=== PATIENT | male | born 1955 | race Caucasian/White ===

== ENCOUNTER 2019-04-14 10:31 | Emergency (ER) | payer BC ==
[~2019-04-14] VITALS: Ht 177.8 cm; Wt 91.9 kg
[2019-04-14] MEDS ORDERED: SODIUM CHLORIDE FLUSH 10ML SYR IVF ONE (11:00)
[2019-04-14] MEDS ORDERED: ONDANSETRON 2MG/ML, 2ML IVPush ONE (11:00)
[2019-04-14] MEDS ORDERED: MORPHINE SULFATE 4 MG/ML, 1ML ONE ×2 (11:03→12:50)
[2019-04-14] MEDS ORDERED: ONDANSETRON 2MG/ML, 2ML ONE (11:03)
[2019-04-14] MEDS: MORPHINE SULFATE 4 MG/ML, 1ML IVPush PRN ×2 (11:15→12:54)
--- NOTE | 2019-04-14 11:25 | NUR ---
IV ESTABLISHED AND PT MEDICATED PER MAY, URINE SAMPLE SENT TO LAB. PT RESTING IN [facility]
[2019-04-14 11:31] LABS: MICROSCOPIC AUTO
[2019-04-14 11:31] LABS: BASOPHILS # (AUTO) 0.05 x10^3/uL (0-0.1); BASOPHILS % (AUTO) 0 % (0-1); EOSINOPHILS # (AUTO) 0.04 x10^3/uL (0-0.4); EOSINOPHILS % (AUTO) 0 % (1-7); LYMPHOCYTES % (AUTO) 6 % (22-44); MD NO; MEAN CORPUSCULAR HGB CONC 33.7 g/dL (33.2-36.2); MEAN CORPUSCULAR VOLUME 94.9 fL (81-97); MONOCYTES # (AUTO) 0.62 x10^3/uL (0.2-0.8); MONOCYTES % (AUTO) 5 % (2-9); NEUTROPHILS # (AUTO) 11.27 x10^3/uL (1.8-6.8); NEUTROPHILS % (AUTO) 88 % (42-75); PLATELET COUNT 317 x10^3/uL (130-400); RED BLOOD COUNT 4.77 x10^6/uL (4.38-5.82); RED CELL DISTRIBUTION WIDTH 13.3 % (9.4-14.8)
[2019-04-14 11:37] LABS: CULTURE INDICATED? NO
[2019-04-14 11:42] LABS: ALBUMIN 3.6 g/dL (3.4-5.0); ANION GAP 8 mmol/L (5-15); CALCIUM 8.5 mg/dL (8.5-10.1); CHLORIDE 103 mmol/L (98-107); CREATININE 1.04 mg/dL (0.7-1.3)
[2019-04-14] MEDS ORDERED: KETOROLAC 30 MG/1 ML ONE (12:45)
--- NOTE | 2019-04-14 12:55 | NUR ---
pt requesting second dose of morphine, pain not relieved after morphine. pt instructed he will need to stay to be monitored for 30 min after dose of morphine. pt agrees
[2019-04-14] MEDS ORDERED: KETOROLAC 30 MG/1 ML IVPush ONE (13:00)
[2019-04-14 13:39] VITALS: BP 121/68
--- NOTE | 2019-04-14 13:40 | NUR ---
PT DISCHARGED WITH SPOUSE, EDUCATED TO NOT BE LEFT ALONE OR FALL ASLEEP ALONE AFTER NARCOTIC DOSES
== END 2019-04-14 13:42 | disposition home or self-care (01) ==
LOC: ED 10:40
DX: N13.2 Hydronephrosis with renal and ureteral calculous obstruction (principal); I10 Essential (primary) hypertension
CPT/HCPCS: 36415; 74176; 80048; 81001; 82040; 85025; 96374; 96375; 96376; 99284; J1885; J2270; J2405

== ENCOUNTER 2020-08-18 08:37 | Inpatient (IN) | payer BC, MEDICARE ==
[~2020-08-18] VITALS: Ht 177.8 cm; Wt 95.2 kg
[2020-08-18 09:53] LABS: BASOPHILS % (AUTO) 1 % (0-1); EOSINOPHILS % (AUTO) 4 % (1-7); LYMPHOCYTES % (AUTO) 22 % (22-44); MEAN CORPUSCULAR HEMOGLOBIN 31.8 pg (27.5-34.5); MEAN CORPUSCULAR HGB CONC 34.1 g/dL (33.2-36.2); MEAN PLATELET VOLUME 8.3 fL (7.4-10.4); MONOCYTES % (AUTO) 13 % (2-9); NEUTROPHILS % (AUTO) 61 % (42-75); PLATELET COUNT 229 x10^3/uL (130-400); RED BLOOD COUNT 5.06 x10^6/uL (4.38-5.82); RED CELL DISTRIBUTION WIDTH 13.7 % (9.4-14.8)
[2020-08-18 09:55] LABS: ANION GAP 4 mmol/L (5-15); CHLORIDE 104 mmol/L (98-107)
--- NOTE | 2020-08-18 09:55 | NUR ---
THIS IS A 64 YEAR OLD MALE WHO C/O HAVING PAIN DOWN BILAT ARMS, AND INDIGESTION WITH TIGHTNESS IN STERNAL CHEST, STARTED YESTERDAY AROUND 0800. SOB STARTED 2 DAYS AGO. HX HTN, PT PLACED ON CARDICA MONITOR, SINUS, CONTINOUS SP02 AND CYCLE VS
[2020-08-18 10:00] LABS: ALANINE AMINOTRANSFERASE 31 U/L (12-78); ALKALINE PHOSPHATASE 53 U/L (45-117); BILIRUBIN,TOTAL 0.7 mg/dL (0.2-1.0); TROPONIN I 0.023 ng/mL (0.000-0.045)
[2020-08-18 10:04] LABS: MD NO
--- NOTE | 2020-08-18 10:55 | NUR ---
PT UP TO RESTROOM GAIT SLOW AND STEADY, VISITING WITH SON.
[2020-08-18] MEDS ORDERED: LISI-167 PO (10:56)
[2020-08-18] MEDS ORDERED: NITROGLYCERIN OINT 2%, 1GM TP ONE ×2 (11:48→12:00)
[2020-08-18] MEDS ORDERED: ASPIRIN 81 MG TABLET CHEW ONE (11:49)
[2020-08-18] MEDS ORDERED: ASPIRIN 81 MG TABLET CHEW PO ONE (12:00)
--- NOTE | 2020-08-18 13:19 | NUR ---
REPORT TO KENDY NAZARIO, PLAN OF CARE GIVING
[2020-08-18 14:59] VITALS: BP 115/65
[2020-08-18] MEDS ORDERED: ATOR10TA9 PO (15:22)
[2020-08-18] MEDS ORDERED: MELO15TA24 PO (15:22)
[2020-08-18] MEDS ORDERED: NITROGLYCERIN 0.4 MG BOTTLE (25 TABS) SL PRN (15:30)
[2020-08-18] MEDS ORDERED: ACETAMINOPHEN 325 MG TABLET PO PRN (15:30)
[2020-08-18] MEDS ORDERED: morphine SULFATE 10 MG/ML, 1ML IVPush PRN (15:30)
[2020-08-18] MEDS ORDERED: NITROGLYCERIN 0.4 MG/SPRAY SL PRN (15:30)
[2020-08-18] MEDS ORDERED: DOCUSATE 100 MG CAPSULE PO PRN (15:30)
[2020-08-18] MEDS ORDERED: POLYETHYLENE GLYCOL 17 GM PACKET PO PRN (15:30)
[2020-08-18 16:16] LABS: TROPONIN I 0.069 ng/mL (0.000-0.045)
[2020-08-18] MEDS: ENOXAPARIN 40 MG/0.4 ML SQ SCH (18:17)
[2020-08-18 18:19] VITALS: BP 129/74
[2020-08-18] MEDS ORDERED: ATORVASTATIN 10 MG TABLET PO SCH (21:00)
[2020-08-18 21:42] LABS: TROPONIN I 0.096 ng/mL (0.000-0.045)
[2020-08-19 00:58] VITALS: BP 151/79
[2020-08-19 05:21] LABS: BASOPHILS % (AUTO) 1 % (0-1); EOSINOPHILS % (AUTO) 4 % (1-7); LYMPHOCYTES % (AUTO) 21 % (22-44); MEAN CORPUSCULAR HEMOGLOBIN 32.2 pg (27.5-34.5); MEAN CORPUSCULAR HGB CONC 34.6 g/dL (33.2-36.2); MEAN PLATELET VOLUME 8.1 fL (7.4-10.4); MONOCYTES % (AUTO) 10 % (2-9); NEUTROPHILS % (AUTO) 64 % (42-75); PLATELET COUNT 220 x10^3/uL (130-400); RED BLOOD COUNT 5.11 x10^6/uL (4.38-5.82); RED CELL DISTRIBUTION WIDTH 13.7 % (9.4-14.8)
[2020-08-19 05:22] LABS: MD NO
[2020-08-19 05:32] LABS: ALBUMIN 3.8 g/dL (3.4-5.0); CHLORIDE 107 mmol/L (98-107)
[2020-08-19 05:51] LABS: ALANINE AMINOTRANSFERASE 29 U/L (12-78); ALKALINE PHOSPHATASE 52 U/L (45-117); ANION GAP 7 mmol/L (5-15); BILIRUBIN,TOTAL 0.7 mg/dL (0.2-1.0); CALCIUM 8.6 mg/dL (8.5-10.1); CHOL/HDL RATIO 3.7; CHOLESTEROL, TOTAL 167 mg/dL (140-239); CREATININE 0.87 mg/dL (0.7-1.3); HDL CHOL % 27 % (26-37); HDL CHOLESTEROL (DIRECT) 45 mg/dL (40-60); LDL CHOLESTEROL,CALCULATED 105 mg/dL (54-169); LDL/HDL RATIO 2.3 (0.5-3.0); TOTAL PROTEIN 7.1 g/dL (6.4-8.2); TRIGLYCERIDES 86 mg/dL (50-200); VLDL CHOLESTEROL 17 mg/dL (0-25)
[2020-08-19] MEDS ORDERED: SODIUM CHLORIDE 0.9% 1,000 ML IV SCH (06:00)
[2020-08-19 07:01] VITALS: BP 142/80
[2020-08-19] MEDS: LISINOPRIL 10 MG TABLET PO SCH (08:31)
[2020-08-19] MEDS ORDERED: REGADENOSON 0.4 MG/5 ML SYRINGE ONE (09:12)
[2020-08-19 14:23] VITALS: BP 137/74
[2020-08-19] MEDS: ASPIRIN 81 MG TABLET EC PO SCH (15:30)
[2020-08-19] MEDS: ENOXAPARIN 40 MG/0.4 ML SQ SCH (18:30)
[2020-08-19 18:35] VITALS: BP 159/87
[2020-08-19] MEDS: ATORVASTATIN 80 MG TABLET PO SCH (21:01)
[2020-08-20 01:23] VITALS: BP 143/80
[2020-08-20] MEDS: SODIUM CHLORIDE 0.9% 1,000 ML IV SCH ×2 (05:50→16:00)
[2020-08-20] MEDS: LISINOPRIL 10 MG TABLET PO SCH (09:52)
[2020-08-20] MEDS: ASPIRIN 81 MG TABLET EC PO SCH (09:52)
[2020-08-20 10:09] VITALS: BP 156/83
[2020-08-20 12:32] VITALS: BP 148/84
[2020-08-20] MEDS ORDERED: LIDOCAINE-MPF 1%, 5ML ONE (14:20)
[2020-08-20] MEDS ORDERED: MIDAZOLAM 1 MG/ML, 2ML ONE (14:20)
[2020-08-20] MEDS ORDERED: FENTANYL PF 100 MCG/2ML ONE (14:20)
[2020-08-20] MEDS ORDERED: VERAPAMIL 2.5 MG/ML, 2ML ONE (14:20)
[2020-08-20] MEDS ORDERED: HEPARIN 1,000 UNITS/ML, 10ML ONE (14:21)
[2020-08-20] MEDS ORDERED: HEPARIN 5,000 UNITS/ML, 1ML IV PRN (15:30)
[2020-08-20] MEDS ORDERED: HEPARIN 5,000 UNITS/ML, 1ML IV ONE (15:30)
[2020-08-20] MEDS ORDERED: HEPARIN 25,000 UNITS/250ML PMX 250 ML IV PRN (15:30)
[2020-08-20 19:50] VITALS: BP 118/81
[2020-08-20] MEDS: ATORVASTATIN 80 MG TABLET PO SCH (21:58)
[2020-08-21 00:41] VITALS: BP 145/87
[2020-08-21 06:46] LABS: BASOPHILS % (AUTO) 1 % (0-1); EOSINOPHILS % (AUTO) 4 % (1-7); LYMPHOCYTES % (AUTO) 19 % (22-44); MEAN CORPUSCULAR HEMOGLOBIN 31.7 pg (27.5-34.5); MEAN PLATELET VOLUME 7.9 fL (7.4-10.4); MONOCYTES % (AUTO) 10 % (2-9); NEUTROPHILS % (AUTO) 66 % (42-75); PLATELET COUNT 212 x10^3/uL (130-400); RED BLOOD COUNT 5.33 x10^6/uL (4.38-5.82); RED CELL DISTRIBUTION WIDTH 13.8 % (9.4-14.8)
[2020-08-21 06:49] LABS: MD NO
[2020-08-21 06:54] LABS: ANION GAP 5 mmol/L (5-15); CALCIUM 8.8 mg/dL (8.5-10.1); CHLORIDE 104 mmol/L (98-107); CREATININE 1.02 mg/dL (0.7-1.3)
[2020-08-21 08:28] VITALS: BP 145/83
[2020-08-21] MEDS ORDERED: LABETALOL 5MG/ML, 20ML IVPush PRN (09:00)
[2020-08-21] MEDS: ASPIRIN 81 MG TABLET EC PO SCH (10:00)
[2020-08-21] MEDS: CARVEDILOL 6.25 MG TABLET PO SCH ×2 (10:00→17:08)
[2020-08-21] MEDS ORDERED: PHARMACY INSTRUCTION MC ONE (10:00)
[2020-08-21 10:10] LABS: BASOPHILS % (AUTO) 1 % (0-1); EOSINOPHILS % (AUTO) 3 % (1-7); LYMPHOCYTES % (AUTO) 16 % (22-44); MEAN CORPUSCULAR HGB CONC 34.3 g/dL (33.2-36.2); MEAN PLATELET VOLUME 7.9 fL (7.4-10.4); MONOCYTES % (AUTO) 10 % (2-9); NEUTROPHILS % (AUTO) 70 % (42-75); PLATELET COUNT 204 x10^3/uL (130-400); RED BLOOD COUNT 5.36 x10^6/uL (4.38-5.82); RED CELL DISTRIBUTION WIDTH 13.6 % (9.4-14.8)
[2020-08-21 10:15] LABS: MD NO
[2020-08-21 10:17] LABS: INTERNATIONAL NORMALIZED RATIO 1.02 (0.93-1.1); PROTHROMBIN TIME 10.9 Seconds (9.6-11.5)
[2020-08-21 10:22] LABS: ALBUMIN 3.7 g/dL (3.4-5.0); ANION GAP 7 mmol/L (5-15); CALCIUM 8.8 mg/dL (8.5-10.1); CHLORIDE 106 mmol/L (98-107)
[2020-08-21 10:25] LABS: ALANINE AMINOTRANSFERASE 27 U/L (12-78); ALKALINE PHOSPHATASE 58 U/L (45-117); CREATININE 0.91 mg/dL (0.7-1.3); TOTAL PROTEIN 7.1 g/dL (6.4-8.2)
[2020-08-21] MEDS ORDERED: HEPARIN 5,000 UNITS/ML, 1ML IV PRN (11:30)
[2020-08-21] MEDS ORDERED: HEPARIN 25,000 UNITS/250ML PMX 250 ML IV PRN (11:30)
[2020-08-21 13:05] VITALS: BP 126/76
[2020-08-21] MEDS ORDERED: MAGNESIUM SULFATE PMX 2GM/50ML 50 ML ONE (16:55)
[2020-08-21] MEDS ORDERED: MAGNESIUM SULFATE PMX 2GM/50ML 50 ML IV ONE (17:00)
[2020-08-21] MEDS: MUPIROCIN OINT 2%, 15GM TP SCH (17:12)
[2020-08-21 19:43] VITALS: BP 127/74
[2020-08-21] MEDS: SODIUM CHLORIDE FLUSH 10ML SYR IVF SCH (21:00)
[2020-08-21] MEDS: ATORVASTATIN 80 MG TABLET PO SCH (21:55)
[2020-08-21] MEDS ORDERED: CHLORHEXIDINE 15 ML UDC MM ONE (22:00)
[2020-08-21 22:42] LABS: MICROSCOPIC NOT IND
[2020-08-22 02:00] VITALS: BP 132/77
[2020-08-22 04:16] VITALS: BP 137/78
[2020-08-22] MEDS ORDERED: METOPROLOL TARTRATE 25 MG TAB PO ONE (05:00)
[2020-08-22] MEDS ORDERED: INSULIN LISPRO 100 UNITS/ML, PEN SQ-INSULIN ONE (05:00)
[2020-08-22] MEDS: MUPIROCIN OINT 2%, 15GM TP SCH (06:00)
[2020-08-22] MEDS: CARVEDILOL 6.25 MG TABLET PO SCH (06:16)
[2020-08-22] MEDS ORDERED: PAPAVERINE 30 MG/ML, 2ML ONE ×2 (06:30→06:41)
[2020-08-22] MEDS ORDERED: HEPARIN 1,000 UNITS/ML, 10ML ONE ×2 (06:30→06:41)
[2020-08-22] MEDS ORDERED: MIDAZOLAM 10MG/2 ML ONE (06:49)
[2020-08-22] MEDS ORDERED: FENTANYL PF 250 MCG/5ML ONE ×5 (06:49→09:10)
[2020-08-22] MEDS ORDERED: AMINOCAPROIC ACID 250 MG/ML, 20ML ONE ×2 (06:50)
[2020-08-22] MEDS ORDERED: ROCURONIUM 10MG/ML,5ML ONE ×3 (06:50→08:00)
[2020-08-22] MEDS ORDERED: EPINEPHRINE 1 MG/ML, 1ML ONE (06:51)
[2020-08-22] MEDS ORDERED: PHENYLEPHRINE 10 MG/ML ONE (06:51)
[2020-08-22] MEDS ORDERED: DEXMEDETOMIDINE 200 MCG in SODIUM CHLORIDE 0.9% 48 ML IV PRN (07:30)
[2020-08-22] MEDS ORDERED: MANNITOL PMX 20% 500 ML IVPB PRN (07:30)
[2020-08-22] MEDS ORDERED: VANCOMYCIN 0 MG in SODIUM CHLORIDE 0.9% 250 ML IVPB ONE (07:30)
[2020-08-22] MEDS ORDERED: VANCOMYCIN 1,400 MG in SODIUM CHLORIDE 0.9% 250 ML IV ONE (07:30)
[2020-08-22] MEDS ORDERED: REGULAR INSULIN 100 UNITS in SODIUM CHLORIDE 0.9% 99 ML IV PRN ×2 (07:30→12:00)
[2020-08-22] MEDS ORDERED: PHENYLEPHRINE 50 MG in SODIUM CHLORIDE 0.9% 245 ML IV PRN (07:30)
[2020-08-22] MEDS ORDERED: ALBUMIN HUMAN 5% 500 ML IV PRN ×2 (07:30→12:00)
[2020-08-22] MEDS ORDERED: POTASSIUM CHLORIDE 80 MEQ, SODIUM BICARBONATE 8.4% 10 MEQ, MAGNESIUM SULFATE 0.5 GM, LI... IV PRN (07:30)
[2020-08-22] MEDS ORDERED: CEFUROXIME 1.5 GM in SODIUM CHLORIDE 0.9% 50 ML IVPB ONE (07:30)
[2020-08-22] MEDS ORDERED: EPINEPHRINE 5 MG in SODIUM CHLORIDE 0.9% 245 ML IV PRN ×2 (07:30→12:00)
[2020-08-22] MEDS ORDERED: PROPOFOL 10 MG/ML, 20ML ONE (08:37)
[2020-08-22] MEDS: ASPIRIN 81 MG TABLET EC PO SCH (09:00)
[2020-08-22] MEDS: SODIUM CHLORIDE FLUSH 10ML SYR IVF SCH ×3 (09:00→20:44)
[2020-08-22] MEDS ORDERED: PROTAMINE SULFATE 10 MG/ML, 25ML ONE (09:15)
[2020-08-22] MEDS ORDERED: FUROSEMIDE 20 MG/2 ML ONE (10:52)
[2020-08-22] MEDS ORDERED: DEXTROSE 50%, 50ML SYRINGE IVPush ONE (11:00)
[2020-08-22] MEDS ORDERED: CALCIUM CHLORIDE 10%, 10ML SYR ONE (11:15)
[2020-08-22] MEDS: INSULIN LISPRO 100 UNITS/ML, PEN SQ-INSULIN SCH ×3 (12:00→20:44)
[2020-08-22] MEDS ORDERED: ONDANSETRON 2MG/ML, 2ML IVPush PRN (12:00)
[2020-08-22] MEDS ORDERED: SODIUM BICARB 8.4%, 50ML SYRINGE IV PRN (12:00)
[2020-08-22] MEDS ORDERED: DEXTROSE 50%, 50ML SYRINGE IVPush PRN (12:00)
[2020-08-22] MEDS: ACETAMINOPHEN 500 MG TABLET PO SCH ×2 (12:00→18:06)
[2020-08-22] MEDS ORDERED: PROMETHAZINE 25 MG SUPP PR PRN (12:00)
[2020-08-22] MEDS ORDERED: INSULIN REGULAR 100 UNITS/ML, 3ML VIAL IVPush PRN (12:00)
[2020-08-22] MEDS ORDERED: PROCHLORPERAZINE 5 MG/ML, 2ML IVPush PRN (12:00)
[2020-08-22] MEDS ORDERED: DEXMEDETOMIDINE 400 MCG in SODIUM CHLORIDE 0.9% 96 ML IV PRN (12:00)
[2020-08-22] MEDS ORDERED: GLUCAGON 1 MG IM PRN (12:00)
[2020-08-22] MEDS: KSCALE TO 4.5 IV SCH ×2 (12:00→18:00)
[2020-08-22] MEDS ORDERED: SODIUM CHLORIDE 0.9% 1,000 ML IV SCH (12:00)
[2020-08-22] MEDS ORDERED: CALCIUM CHLORIDE 13.6 MEQ in SODIUM CHLORIDE 0.9% 100 ML IVPB PRN (12:00)
[2020-08-22] MEDS ORDERED: LACTATED RINGERS 500 ML IV PRN (12:00)
[2020-08-22] MEDS ORDERED: VASOPRESSIN 20 UNIT in SODIUM CHLORIDE 0.9% 99 ML IV PRN (12:00)
[2020-08-22] MEDS ORDERED: DEXTROSE 4 GM TAB.CHEW PO PRN (12:00)
[2020-08-22] MEDS ORDERED: LIDOCAINE 2%, 20ML ONE (12:12)
[2020-08-22] MEDS ORDERED: SODIUM BICARBONATE 1 MEQ/ML, 50ML VIAL ONE (12:12)
[2020-08-22] MEDS ORDERED: HEPARIN 1,000 UNITS/ML, 30ML ONE (12:12)
[2020-08-22] MEDS ORDERED: ALBUMIN HUMAN 25% 50 ML ONE (12:13)
[2020-08-22] MEDS ORDERED: MORPHINE SULFATE 4 MG/ML, 1ML ONE ×2 (12:29→13:07)
[2020-08-22 13:03] LABS: GLUCOSE BY BLOOD GAS ANALYZER 129 mg/dL (70-110); HEMOGLOBIN BY BLOOD GAS ANALYZ 14.3 g/dL (14.0-18.0)
[2020-08-22 13:17] LABS: INTERNATIONAL NORMALIZED RATIO 1.17 (0.93-1.1); PROTHROMBIN TIME 12.5 Seconds (9.6-11.5)
[2020-08-22] MEDS: MAGNESIUM SULFATE 1 GM in SODIUM CHLORIDE 0.9% 100 ML IVPB SCH (13:27)
[2020-08-22] MEDS ORDERED: MORPHINE SULFATE 4 MG/ML, 1ML IVPush PRN (13:30)
[2020-08-22] MEDS: FENTANYL PF 100 MCG/2ML IV PRN ×2 (13:55→14:27)
[2020-08-22] MEDS: ONDANSETRON 2MG/ML, 2ML IVPush PRN (17:45)
[2020-08-22] MEDS: CARVEDILOL 3.125 MG TABLET PO SCH (18:00)
[2020-08-22] MEDS ORDERED: CARVEDILOL 6.25 MG TABLET PO SCH (18:00)
[2020-08-22] MEDS: OXYcodone IR 5MG TABLET PO PRN ×3 (18:14→22:51)
[2020-08-22] MEDS: CEFUROXIME 1.5 GM in SODIUM CHLORIDE 0.9% 50 ML IVPB SCH (19:25)
[2020-08-22] MEDS: VANCOMYCIN 1,400 MG in SODIUM CHLORIDE 0.9% 250 ML IVPB SCH (20:24)
[2020-08-22] MEDS: DOCUSATE 100 MG CAPSULE PO SCH (20:44)
[2020-08-22] MEDS: ATORVASTATIN 80 MG TABLET PO SCH (20:44)
[2020-08-22] MEDS ORDERED: DIPHENHYDRAMINE 25 MG CAPSULE PO PRN (21:00)
[2020-08-23] MEDS: INSULIN LISPRO 100 UNITS/ML, PEN SQ-INSULIN SCH ×7 (00:05→21:00)
[2020-08-23] MEDS: ACETAMINOPHEN 500 MG TABLET PO SCH ×4 (00:42→17:09)
[2020-08-23] MEDS: KSCALE TO 4.5 IV SCH ×2 (00:42→06:40)
[2020-08-23] MEDS: OXYcodone IR 5MG TABLET PO PRN ×5 (02:35→20:45)
[2020-08-23] MEDS: ONDANSETRON 2MG/ML, 2ML IVPush PRN (02:35)
[2020-08-23 04:43] LABS: BASOPHILS % (AUTO) 0 % (0-1); EOSINOPHILS % (AUTO) 0 % (1-7); LYMPHOCYTES % (AUTO) 4 % (22-44); MEAN CORPUSCULAR HEMOGLOBIN 31.9 pg (27.5-34.5); MEAN PLATELET VOLUME 8.5 fL (7.4-10.4); MONOCYTES % (AUTO) 11 % (2-9); NEUTROPHILS % (AUTO) 85 % (42-75); PLATELET COUNT 143 x10^3/uL (130-400); RED BLOOD COUNT 4.06 x10^6/uL (4.38-5.82); RED CELL DISTRIBUTION WIDTH 13.9 % (9.4-14.8)
[2020-08-23 04:44] LABS: ANION GAP 7 mmol/L (5-15); CHLORIDE 109 mmol/L (98-107)
[2020-08-23 05:15] LABS: MD SCAN
[2020-08-23] MEDS: CARVEDILOL 3.125 MG TABLET PO SCH ×2 (05:32→17:09)
[2020-08-23] MEDS: MUPIROCIN OINT 2%, 15GM NAS SCH ×2 (05:50→17:10)
[2020-08-23] MEDS: CEFUROXIME 1.5 GM in SODIUM CHLORIDE 0.9% 50 ML IVPB SCH (07:42)
[2020-08-23] MEDS: ASPIRIN 81 MG TABLET EC PO SCH ×2 (08:48→09:00)
[2020-08-23] MEDS: OMEPRAZOLE 20 MG CAPSULE.DR PO SCH (08:48)
[2020-08-23] MEDS: CHLORHEXIDINE 15 ML UDC MM SCH ×2 (08:48→20:42)
[2020-08-23] MEDS: SENNA/DOCUSATE TABLET PO SCH ×2 (08:49→20:44)
[2020-08-23] MEDS: DOCUSATE 100 MG CAPSULE PO SCH ×2 (08:49→20:44)
[2020-08-23] MEDS: POLYETHYLENE GLYCOL 17 GM PACKET PO SCH (08:49)
[2020-08-23] MEDS: VANCOMYCIN 1,400 MG in SODIUM CHLORIDE 0.9% 250 ML IVPB SCH (08:50)
[2020-08-23] MEDS: SODIUM CHLORIDE FLUSH 10ML SYR IVF SCH ×4 (09:00→21:00)
[2020-08-23] MEDS: MAGNESIUM SULFATE 1 GM in SODIUM CHLORIDE 0.9% 100 ML IVPB SCH (12:15)
[2020-08-23 14:26] VITALS: BP 157/78
[2020-08-23] MEDS: POTASSIUM CHLORIDE 10 MEQ TABLET.ER PO SCH (17:09)
[2020-08-23] MEDS: FUROSEMIDE 20 MG/2 ML IV SCH (17:10)
[2020-08-23 20:05] VITALS: BP 122/74
[2020-08-23] MEDS: ATORVASTATIN 80 MG TABLET PO SCH (20:44)
[2020-08-24 00:22] VITALS: BP 131/74
[2020-08-24] MEDS: ACETAMINOPHEN 500 MG TABLET PO SCH ×5 (01:00→23:49)
[2020-08-24 01:07] VITALS: BP 128/75
[2020-08-24] MEDS: INSULIN LISPRO 100 UNITS/ML, PEN SQ-INSULIN SCH ×5 (04:00→21:00)
[2020-08-24 04:30] LABS: BASOPHILS % (AUTO) 0 % (0-1); EOSINOPHILS % (AUTO) 1 % (1-7); LYMPHOCYTES % (AUTO) 6 % (22-44); MEAN CORPUSCULAR HEMOGLOBIN 31.9 pg (27.5-34.5); MEAN CORPUSCULAR HGB CONC 34.2 g/dL (33.2-36.2); MEAN PLATELET VOLUME 8.3 fL (7.4-10.4); MONOCYTES % (AUTO) 15 % (2-9); NEUTROPHILS % (AUTO) 78 % (42-75); PLATELET COUNT 136 x10^3/uL (130-400); RED BLOOD COUNT 3.83 x10^6/uL (4.38-5.82); RED CELL DISTRIBUTION WIDTH 13.7 % (9.4-14.8)
[2020-08-24 04:41] LABS: ANION GAP 4 mmol/L (5-15); CALCIUM 8.1 mg/dL (8.5-10.1); CHLORIDE 102 mmol/L (98-107); CREATININE 0.79 mg/dL (0.7-1.3)
[2020-08-24 05:14] LABS: MD SCAN
[2020-08-24] MEDS: CARVEDILOL 3.125 MG TABLET PO SCH ×2 (05:57→17:35)
[2020-08-24] MEDS: MUPIROCIN OINT 2%, 15GM NAS SCH ×2 (05:57→17:36)
[2020-08-24 07:03] VITALS: BP 127/73
[2020-08-24] MEDS: CHLORHEXIDINE 15 ML UDC MM SCH ×2 (08:56→21:42)
[2020-08-24] MEDS: POLYETHYLENE GLYCOL 17 GM PACKET PO SCH (08:57)
[2020-08-24] MEDS: SENNA/DOCUSATE TABLET PO SCH ×2 (08:58→21:00)
[2020-08-24] MEDS: FUROSEMIDE 20 MG/2 ML IV SCH ×2 (08:58→17:35)
[2020-08-24] MEDS: DOCUSATE 100 MG CAPSULE PO SCH ×2 (08:58→21:32)
[2020-08-24] MEDS: POTASSIUM CHLORIDE 10 MEQ TABLET.ER PO SCH ×2 (08:59→17:35)
[2020-08-24] MEDS: OMEPRAZOLE 20 MG CAPSULE.DR PO SCH (08:59)
[2020-08-24] MEDS: ASPIRIN 81 MG TABLET EC PO SCH (08:59)
[2020-08-24] MEDS: SODIUM CHLORIDE FLUSH 10ML SYR IVF SCH ×4 (09:00→21:00)
[2020-08-24] MEDS: ENOXAPARIN 40 MG/0.4 ML SQ SCH (09:00)
[2020-08-24] MEDS: OXYcodone IR 5MG TABLET PO PRN ×2 (10:08→21:32)
[2020-08-24] MEDS: MAGNESIUM SULFATE 1 GM in SODIUM CHLORIDE 0.9% 100 ML IVPB SCH (11:37)
[2020-08-24] MEDS ORDERED: BISACODYL 10 MG SUPP PR PRN (12:00)
[2020-08-24 12:35] VITALS: BP 135/76
[2020-08-24 19:44] VITALS: BP 131/73
[2020-08-24] MEDS: ATORVASTATIN 80 MG TABLET PO SCH (21:32)
[2020-08-25] VITALS (7 sets, daily range): BP systolic 93–151; BP diastolic 48–85
[2020-08-25] MEDS: CARVEDILOL 3.125 MG TABLET PO SCH (04:59)
[2020-08-25] MEDS: MUPIROCIN OINT 2%, 15GM NAS SCH ×2 (04:59→18:00)
[2020-08-25 05:38] LABS: BASOPHILS % (AUTO) 0 % (0-1); EOSINOPHILS % (AUTO) 1 % (1-7); LYMPHOCYTES % (AUTO) 6 % (22-44); MEAN CORPUSCULAR HEMOGLOBIN 31.9 pg (27.5-34.5); MEAN CORPUSCULAR HGB CONC 34.3 g/dL (33.2-36.2); MEAN PLATELET VOLUME 8.7 fL (7.4-10.4); MONOCYTES % (AUTO) 13 % (2-9); NEUTROPHILS % (AUTO) 79 % (42-75); PLATELET COUNT 170 x10^3/uL (130-400); RED BLOOD COUNT 4.02 x10^6/uL (4.38-5.82); RED CELL DISTRIBUTION WIDTH 13.7 % (9.4-14.8)
[2020-08-25 05:43] LABS: ANION GAP 4 mmol/L (5-15); CALCIUM 8.9 mg/dL (8.5-10.1); CHLORIDE 99 mmol/L (98-107)
[2020-08-25 05:45] LABS: CREATININE 0.75 mg/dL (0.7-1.3)
[2020-08-25] MEDS: ACETAMINOPHEN 500 MG TABLET PO SCH ×3 (06:00→18:00)
[2020-08-25 06:12] LABS: MD SCAN
[2020-08-25] MEDS: INSULIN LISPRO 100 UNITS/ML, PEN SQ-INSULIN SCH (07:00)
[2020-08-25] MEDS: ENOXAPARIN 40 MG/0.4 ML SQ SCH (08:25)
[2020-08-25] MEDS: FUROSEMIDE 20 MG/2 ML IV SCH ×2 (08:35→16:48)
[2020-08-25] MEDS: CLOPIDOGREL 75 MG TABLET PO SCH (08:35)
[2020-08-25] MEDS: SODIUM CHLORIDE FLUSH 10ML SYR IVF SCH ×4 (08:35→20:56)
[2020-08-25] MEDS: OMEPRAZOLE 20 MG CAPSULE.DR PO SCH (08:35)
[2020-08-25] MEDS: DOCUSATE 100 MG CAPSULE PO SCH ×2 (08:35→20:56)
[2020-08-25] MEDS: ASPIRIN 81 MG TABLET EC PO SCH (08:35)
[2020-08-25] MEDS: POTASSIUM CHLORIDE 10 MEQ TABLET.ER PO SCH ×2 (08:35→17:57)
[2020-08-25] MEDS: SENNA/DOCUSATE TABLET PO SCH ×2 (08:35→20:56)
[2020-08-25] MEDS: POLYETHYLENE GLYCOL 17 GM PACKET PO SCH (08:36)
[2020-08-25] MEDS: OXYcodone IR 5MG TABLET PO PRN ×2 (08:57→18:03)
[2020-08-25] MEDS: FLUTICASONE NASAL SPRAY 16GM NAS SCH ×2 (14:08→20:57)
[2020-08-25] MEDS ORDERED: AMIODARONE 150 MG in DEXTROSE 5% 100 ML IV ONE (16:00)
[2020-08-25] MEDS ORDERED: FILTER 0.22 MICRON FOR AMIODARONE IV PRN (16:30)
[2020-08-25] MEDS: CARVEDILOL 6.25 MG TABLET PO SCH (16:48)
[2020-08-25] MEDS: AMIODARONE 450 MG in DEXTROSE 5% 241 ML IV PRN (17:57)
[2020-08-25] MEDS: ATORVASTATIN 80 MG TABLET PO SCH (20:57)
[2020-08-26] MEDS: ACETAMINOPHEN 500 MG TABLET PO SCH ×6 (00:13→17:48)
[2020-08-26] MEDS: OXYcodone IR 5MG TABLET PO PRN ×4 (00:13→18:00)
[2020-08-26 01:16] VITALS: BP 112/74
[2020-08-26] MEDS: AMIODARONE 450 MG in DEXTROSE 5% 241 ML IV PRN (01:23)
[2020-08-26] MEDS: MUPIROCIN OINT 2%, 15GM NAS SCH ×2 (05:11→17:53)
[2020-08-26] MEDS: CARVEDILOL 6.25 MG TABLET PO SCH ×2 (05:11→17:53)
[2020-08-26 05:22] LABS: ANION GAP 6 mmol/L (5-15); CALCIUM 8.3 mg/dL (8.5-10.1); CHLORIDE 101 mmol/L (98-107)
[2020-08-26 05:23] LABS: BASOPHILS % (AUTO) 1 % (0-1); EOSINOPHILS % (AUTO) 2 % (1-7); LYMPHOCYTES % (AUTO) 13 % (22-44); MEAN CORPUSCULAR HGB CONC 34.4 g/dL (33.2-36.2); MEAN PLATELET VOLUME 8.1 fL (7.4-10.4); MONOCYTES % (AUTO) 15 % (2-9); NEUTROPHILS % (AUTO) 69 % (42-75); PLATELET COUNT 226 x10^3/uL (130-400); RED BLOOD COUNT 3.95 x10^6/uL (4.38-5.82); RED CELL DISTRIBUTION WIDTH 13.5 % (9.4-14.8)
[2020-08-26 05:25] LABS: CREATININE 0.72 mg/dL (0.7-1.3)
[2020-08-26 06:15] LABS: MD SCAN
[2020-08-26 06:52] VITALS: BP 128/83
[2020-08-26] MEDS: POLYETHYLENE GLYCOL 17 GM PACKET PO SCH (09:00)
[2020-08-26] MEDS: ENOXAPARIN 40 MG/0.4 ML SQ SCH (09:24)
[2020-08-26] MEDS: FLUTICASONE NASAL SPRAY 16GM NAS SCH ×2 (09:24→21:15)
[2020-08-26] MEDS: SENNA/DOCUSATE TABLET PO SCH ×2 (09:24→21:15)
[2020-08-26] MEDS: FUROSEMIDE 20 MG/2 ML IV SCH (09:24)
[2020-08-26] MEDS: OMEPRAZOLE 20 MG CAPSULE.DR PO SCH (09:25)
[2020-08-26] MEDS: DOCUSATE 100 MG CAPSULE PO SCH ×2 (09:25→21:14)
[2020-08-26] MEDS: POTASSIUM CHLORIDE 10 MEQ TABLET.ER PO SCH ×2 (09:25→16:33)
[2020-08-26] MEDS: CLOPIDOGREL 75 MG TABLET PO SCH (09:25)
[2020-08-26] MEDS: SODIUM CHLORIDE FLUSH 10ML SYR IVF SCH ×4 (09:25→21:15)
[2020-08-26] MEDS: ASPIRIN 81 MG TABLET EC PO SCH (09:25)
[2020-08-26] MEDS: FUROSEMIDE 40 MG/4 ML IV SCH (10:00)
[2020-08-26 14:55] VITALS: BP 132/75
[2020-08-26 19:25] VITALS: BP 128/84
[2020-08-26] MEDS: AMIODARONE 200 MG TABLET PO SCH (21:14)
[2020-08-26] MEDS: ATORVASTATIN 80 MG TABLET PO SCH (21:14)
[2020-08-27] MEDS: ACETAMINOPHEN 500 MG TABLET PO SCH ×2 (00:36→06:46)
[2020-08-27 01:37] VITALS: BP 132/87
[2020-08-27] MEDS: OXYcodone IR 5MG TABLET PO PRN ×2 (03:15→10:16)
[2020-08-27 05:54] LABS: BASOPHILS % (AUTO) 1 % (0-1); EOSINOPHILS % (AUTO) 4 % (1-7); LYMPHOCYTES % (AUTO) 12 % (22-44); MEAN CORPUSCULAR HEMOGLOBIN 32.1 pg (27.5-34.5); MEAN CORPUSCULAR HGB CONC 34.6 g/dL (33.2-36.2); MONOCYTES % (AUTO) 14 % (2-9); NEUTROPHILS % (AUTO) 70 % (42-75); PLATELET COUNT 334 x10^3/uL (130-400); RED BLOOD COUNT 4.44 x10^6/uL (4.38-5.82); RED CELL DISTRIBUTION WIDTH 13.8 % (9.4-14.8)
[2020-08-27 06:03] LABS: ANION GAP 6 mmol/L (5-15); CHLORIDE 98 mmol/L (98-107)
[2020-08-27 06:04] LABS: CREATININE 1.01 mg/dL (0.7-1.3)
[2020-08-27] MEDS: MUPIROCIN OINT 2%, 15GM NAS SCH (06:48)
[2020-08-27] MEDS: CARVEDILOL 6.25 MG TABLET PO SCH (06:51)
[2020-08-27 06:52] VITALS: BP 151/90
[2020-08-27 06:58] LABS: MD SCAN
[2020-08-27] MEDS: OMEPRAZOLE 20 MG CAPSULE.DR PO SCH (08:01)
[2020-08-27] MEDS: FUROSEMIDE 40 MG/4 ML IV SCH (08:01)
[2020-08-27] MEDS: SENNA/DOCUSATE TABLET PO SCH (08:01)
[2020-08-27] MEDS: ASPIRIN 81 MG TABLET EC PO SCH (08:02)
[2020-08-27] MEDS: POLYETHYLENE GLYCOL 17 GM PACKET PO SCH (08:02)
[2020-08-27] MEDS: AMIODARONE 200 MG TABLET PO SCH (08:02)
[2020-08-27] MEDS: POTASSIUM CHLORIDE 10 MEQ TABLET.ER PO SCH (08:02)
[2020-08-27] MEDS: DOCUSATE 100 MG CAPSULE PO SCH (08:02)
[2020-08-27] MEDS: CLOPIDOGREL 75 MG TABLET PO SCH (08:02)
[2020-08-27] MEDS: ENOXAPARIN 40 MG/0.4 ML SQ SCH (08:03)
[2020-08-27] MEDS: FLUTICASONE NASAL SPRAY 16GM NAS SCH (08:07)
[2020-08-27] MEDS: SODIUM CHLORIDE FLUSH 10ML SYR IVF SCH ×2 (08:07)
[2020-08-27 08:30] VITALS: BP 133/81
[2020-08-27] MEDS ORDERED: ATOR-2 PO (09:46)
[2020-08-27] MEDS ORDERED: ASPI81TA45 PO (09:46)
[2020-08-27] MEDS ORDERED: FURO20TA3 PO (09:46)
[2020-08-27] MEDS ORDERED: AMIO200T42 PO (09:46)
[2020-08-27] MEDS ORDERED: POTA10TA5 PO (09:46)
[2020-08-27] MEDS ORDERED: CLOP75TA PO (09:46)
[2020-08-27] MEDS ORDERED: OMEP-110 PO (09:46)
[2020-08-27] MEDS ORDERED: OXYC10TA6 PO (09:46)
[2020-08-27 13:59] VITALS: BP 124/83
== END 2020-08-27 15:49 | disposition home or self-care (01) | DRG 233 ==
LOC: ED 10:00 → SUATTDRO 11:58 → 5SO 12:01 → INTOOBSV 12:01 → OBSVTOIN 15:02 → 5SO 08-20 21:45 → CCU 08-22 07:40 → CSU 08-22 11:48 → 5SO 08-23 14:17 → DCLOUNGE 08-27 15:15
PROVIDERS: ADMIT Internal Medicine; ATTEND Internal Medicine
PROC: 4A023N7 Measurement of Cardiac Sampling and Pressure, Left Heart, Percutaneous Approach (ICD-10-PCS; principal; 2020-08-20)
PROC: B2111ZZ Fluoroscopy of Multiple Coronary Arteries using Low Osmolar Contrast (ICD-10-PCS; 2020-08-20)
PROC: B2151ZZ Fluoroscopy of Left Heart using Low Osmolar Contrast (ICD-10-PCS; 2020-08-20)
PROC: B245ZZ4 Ultrasonography of Left Heart, Transesophageal (ICD-10-PCS; 2020-08-20)
PROC: 021209W Bypass Coronary Artery, Three Arteries from Aorta with Autologous Venous Tissue, Open Approach (ICD-10-PCS; 2020-08-22)
PROC: 02100Z9 Bypass Coronary Artery, One Artery from Left Internal Mammary, Open Approach (ICD-10-PCS; 2020-08-22)
PROC: 06BQ4ZZ Excision of Left Saphenous Vein, Percutaneous Endoscopic Approach (ICD-10-PCS; 2020-08-22)
PROC: 5A1935Z Respiratory Ventilation, Less than 24 Consecutive Hours (ICD-10-PCS; 2020-08-22)
PROC: 0BH17EZ Insertion of Endotracheal Airway into Trachea, Via Natural or Artificial Opening (ICD-10-PCS; 2020-08-22)
DX: I21.4 Non-ST elevation (NSTEMI) myocardial infarction (principal); J96.00 Acute respiratory failure, unspecified whether with hypoxia or hypercapnia; N20.2 Calculus of kidney with calculus of ureter; G93.40 Encephalopathy, unspecified; I50.32 Chronic diastolic (congestive) heart failure; I97.190 Other postprocedural cardiac functional disturbances following cardiac surgery; I25.10 Atherosclerotic heart disease of native coronary artery without angina pectoris; I48.91 Unspecified atrial fibrillation; Y83.2 Surgical operation with anastomosis, bypass or graft as the cause of abnormal reaction of the patient, or of later complication, without mention of misadventure at the time of the procedure; Y71.8 Miscellaneous cardiovascular devices associated with adverse incidents, not elsewhere classified; Z20.822 Contact with and (suspected) exposure to COVID-19; I10 Essential (primary) hypertension; E78.5 Hyperlipidemia, unspecified; I11.0 Hypertensive heart disease with heart failure; Z82.49 Family history of ischemic heart disease and other diseases of the circulatory system; Z87.442 Personal history of urinary calculi; Z87.891 Personal history of nicotine dependence; Z90.49 Acquired absence of other specified parts of digestive tract; Z79.899 Other long term (current) drug therapy; Z79.891 Long term (current) use of opiate analgesic; Z79.01 Long term (current) use of anticoagulants
CPT/HCPCS: 36415; 36600; 93017; 93458; 99285; J3490; S0017; 71045; 71046; 78452; 80048; 80053; 80061; 81003; 82330; 82800; 82803; 82810; 82947; 82962; 83036; 83735; 83880; 84132; 84295; 84443; 84484; 85014; 85018; 85025; 85049; 85347; 85379; 85520; 85610; 85730; 86850; 86900; 86923; 87081; 87635; 93005; 93306; 93312; 93321; 93325; 93356; 93880; 93970; 94002; 99156; C1769; C1894; G0378; J0171; J0697; J1644; J1650; J1815; J1940; J2250; J2405; J2704; J2720; J2785; J3010; J3370; J3475; J3480; J7060; J7120; P9045; P9047; A9502; C1751; C1760; C9898; J0282; J2270; J2370; J2440; J7030; J7050; Q0163; Q9967

== ENCOUNTER 2020-09-12 14:09 | Observation (INO) | payer BC, MEDICARE ==
[~2020-09-12] VITALS: Ht 177.8 cm; Wt 85.8 kg
[~2020-09-12 14:09] MED LIST: AMIO200T42 PO; ASPI81TA45 PO; ATOR-2 PO; ATOR10TA9 PO; CLOP75TA PO; FURO20TA3 PO; LISI-167 PO; MELO15TA24 PO; OMEP-110 PO; OXYC10TA6 PO; POTA10TA5 PO
[2020-09-12] MEDS ORDERED: MORPHINE SULFATE 4 MG/ML, 1ML ONE (14:58)
[2020-09-12] MEDS ORDERED: ONDANSETRON 2MG/ML, 2ML ONE (14:58)
[2020-09-12] MEDS ORDERED: MORPHINE SULFATE 4 MG/ML, 1ML IVPush PRN (15:00)
[2020-09-12] MEDS ORDERED: ONDANSETRON 2MG/ML, 2ML IVPush ONE (15:00)
[2020-09-12 15:09] LABS: BASOPHILS % (AUTO) 1 % (0-1); EOSINOPHILS % (AUTO) 3 % (1-7); LYMPHOCYTES % (AUTO) 17 % (22-44); MEAN CORPUSCULAR HEMOGLOBIN 31.2 pg (27.5-34.5); MEAN CORPUSCULAR HGB CONC 33.6 g/dL (33.2-36.2); MEAN PLATELET VOLUME 7.5 fL (7.4-10.4); MONOCYTES % (AUTO) 14 % (2-9); NEUTROPHILS % (AUTO) 66 % (42-75); PLATELET COUNT 410 x10^3/uL (130-400); RED BLOOD COUNT 4.39 x10^6/uL (4.38-5.82); RED CELL DISTRIBUTION WIDTH 13.8 % (9.4-14.8)
[2020-09-12 15:14] LABS: ALBUMIN 3.2 g/dL (3.4-5.0); ANION GAP 10 mmol/L (5-15); CALCIUM 9.3 mg/dL (8.5-10.1); CHLORIDE 103 mmol/L (98-107)
[2020-09-12 15:16] LABS: CREATININE 1.12 mg/dL (0.7-1.3); TROPONIN I 0.038 ng/mL (0.000-0.045)
[2020-09-12] MEDS ORDERED: OMNIPAQUE 350 MG/ML, 75ML BOTTLE ONE (15:56)
--- NOTE | 2020-09-12 16:01 | NUR ---
PT RESTING ON GURNEY. NADN. NUR.
--- NOTE | 2020-09-12 16:37 | NUR ---
BREAK RN: DR BANG HAS UPDATED PATIENT. FAMILY AT BEDSIDE. PLATE DRILLER ON. CALL LIGHT IN PLACE. WILL CONTINUE TO MONITOR TO MONITOR WHILE PRIMARY RN IS ON BREAK
--- NOTE | 2020-09-12 17:19 | NUR ---
PT RESTING ON GURNEY. NADN. NUR.
--- NOTE | 2020-09-12 17:33 | NUR ---
PT TROP NOTED TO BE INCREASING. ERP DR. BANG NOTIFIED. PT PLACED FOR RECHECK.
--- NOTE | 2020-09-12 17:52 | NUR ---
PT RESTING ON GURNEY. NADN. NUR.
--- NOTE | 2020-09-12 17:55 | NUR ---
ERP DR. BANG AT BEDSIDE FOR RE-EVAL.
--- NOTE | 2020-09-12 18:52 | NUR ---
PT RESTING ON GURNEY. NADN. NUR.
--- NOTE | 2020-09-12 20:08 | NUR ---
PT RESTING ON GURNEY. NADN. NUR.
--- NOTE | 2020-09-12 20:39 | NUR ---
REPORT GIVEN TO MARIELA HOLLOWAY RN. ALL QUESTIONS ANSWERED. AWAITING PT TRANSPORT.
[2020-09-12 21:12] VITALS: BP 141/80
[2020-09-13 00:30] VITALS: BP 120/75
[2020-09-13] MEDS ORDERED: TRAZODONE 50MG TABLET PO PRN (03:30)
[2020-09-13] MEDS ORDERED: ONDANSETRON 2MG/ML, 2ML IVPush PRN (03:30)
[2020-09-13] MEDS ORDERED: LABETALOL 5MG/ML, 20ML IVPush PRN (03:30)
[2020-09-13] MEDS ORDERED: ACETAMINOPHEN 325 MG TABLET PO PRN (03:30)
[2020-09-13] MEDS: OXYcodone IR 5MG TABLET PO PRN ×2 (03:46→15:58)
[2020-09-13 03:54] LABS: ALANINE AMINOTRANSFERASE 33 U/L (12-78); BILIRUBIN, DIRECT 0.2 mg/dL (0.1-0.2)
[2020-09-13 03:58] LABS: ALKALINE PHOSPHATASE 106 U/L (45-117); BILIRUBIN,INDIRECT 0.3 mg/dL (0.0-2.0); BILIRUBIN,TOTAL 0.5 mg/dL (0.2-1.0); TOTAL PROTEIN 7.2 g/dL (6.4-8.2); TROPONIN I 0.036 ng/mL (0.000-0.045)
[2020-09-13 07:05] VITALS: BP 122/77
[2020-09-13] MEDS ORDERED: OMEPRAZOLE 20 MG CAPSULE.DR PO SCH (07:30)
[2020-09-13] MEDS ORDERED: SENNA/DOCUSATE TABLET PO SCH (09:00)
[2020-09-13] MEDS ORDERED: CLOPIDOGREL 75 MG TABLET PO SCH (09:00)
[2020-09-13] MEDS ORDERED: POTASSIUM CHLORIDE 10 MEQ TABLET.ER PO SCH (09:00)
[2020-09-13] MEDS ORDERED: ASPIRIN 81 MG TABLET EC PO SCH (09:00)
[2020-09-13] MEDS ORDERED: FUROSEMIDE 20 MG TABLET PO SCH (09:00)
[2020-09-13] MEDS ORDERED: AMIODARONE 200 MG TABLET PO SCH (09:00)
[2020-09-13] MEDS ORDERED: LISINOPRIL 5 MG TABLET PO SCH (09:00)
[2020-09-13 09:17] LABS: TROPONIN I 0.031 ng/mL (0.000-0.045)
[2020-09-13 09:33] VITALS: BP 104/66
[2020-09-13] MEDS ORDERED: OMNIPAQUE 350 MG/ML, 100ML BOTTLE ONE (10:54)
[2020-09-13] MEDS ORDERED: LIDODERM 5% PATCH TD SCH (11:00)
[2020-09-13 14:23] VITALS: BP 106/69
[2020-09-13] MEDS ORDERED: OXYC5TAB98 PO ×3 (16:09→17:15)
[2020-09-13] MEDS ORDERED: ATORVASTATIN 80 MG TABLET PO SCH (21:00)
== END 2020-09-13 17:37 | disposition home or self-care (01) ==
LOC: ED 16:41 → EDIP 20:36 → INTOOBSV 20:36 → 5SO 21:02
PROVIDERS: ADMIT Family Medicine; ATTEND Hospitalist
DX: R07.89 Other chest pain (principal); I21.4 Non-ST elevation (NSTEMI) myocardial infarction; I25.10 Atherosclerotic heart disease of native coronary artery without angina pectoris; R59.0 Localized enlarged lymph nodes; I31.3 Pericardial effusion (noninflammatory); I48.0 Paroxysmal atrial fibrillation; I10 Essential (primary) hypertension; E78.5 Hyperlipidemia, unspecified; Z79.82 Long term (current) use of aspirin; Z79.899 Other long term (current) drug therapy; Z95.1 Presence of aortocoronary bypass graft
CPT/HCPCS: 36415; 71045; 71275; 74177; 80048; 80076; 82040; 83735; 83880; 84484; 85025; 93005; 93306; 96374; 96375; 99285; G0378; J2270; J2405; Q9967

== ENCOUNTER → 2020-10-16 | Outpatient (CLI) | payer BC, MEDICARE ==
[~2020-10-16] MED LIST changes: +OXYC5TAB98 PO
== END | disposition home or self-care (01) ==
LOC: CFH 10:04
PROVIDERS: ATTEND Internal Medicine Cardiovascular Disease
DX: I08.8 Other rheumatic multiple valve diseases (principal); I48.91 Unspecified atrial fibrillation
CPT/HCPCS: 93306; 93356